=== PATIENT | female | born 1960 | race Caucasian/White ===

== ENCOUNTER → 2020-04-15 | Outpatient (CLI) | payer MEDICARE ==
--- NOTE | 2020-04-15 12:59 | RADIOLOGY REPORT (SQ) ---
EXAM DESCRIPTION: FOOT LEFT COMPLETE IMAGES COMPLETED DATE/TIME: 04/15/2020 12:36 pm REASON FOR STUDY: LEFT FOOT PAIN COMPARISON: None. NUMBER OF VIEWS: Three views. TECHNIQUE: AP, lateral and oblique radiographic images acquired of the left foot. LIMITATIONS: None. FINDINGS: MINERALIZATION: Osteopenia. BONES: No acute fracture or dislocation. No worrisome bone lesions. JOINTS: Degenerative changes in the tarsal bones. SOFT TISSUES: Soft tissue swelling dorsally. OTHER: Prominent calcaneal spur at the insertion site of the Achilles tendon. IMPRESSION: Soft tissue swelling dorsally. Degenerative changes. No acute fracture or dislocation. No foreign bodies. TECHNICAL DOCUMENTATION: JOB ID: [id number] 2010 [employer]- All Rights Reserved Reading location - IP/workstation name: [email or web address]
== END ==
LOC: RAD 12:20
PROVIDERS: ATTEND Nurse Practitioner Acute Care
DX: M77.32 Calcaneal spur, left foot (principal); M79.672 Pain in left foot; M79.89 Other specified soft tissue disorders